=== PATIENT | female | born 1965 | race American Indian/Alaskan Native ===

== ENCOUNTER 2020-07-01 15:26 | Outpatient (CLI) | payer BC | END 2020-07-01 15:27 | disposition home or self-care (01) | LOC: LABHHL 15:26 | PROVIDERS: ATTEND Surgery | DX: C50.912 Malignant neoplasm of unspecified site of left female breast (principal) | CPT/HCPCS: 88342 ==

== ENCOUNTER 2020-07-02 13:04 | Outpatient (CLI) | payer BC ==
--- NOTE | 2020-07-02 15:50 | Magnetic Resonance Report ---
BILATERAL BREAST MRI WITH AND WITHOUT CONTRAST CLINICAL INFORMATION/INDICATION: Patient presents for evaluation of extent of disease of recent biops y proven left breast DCIS. TECHNICAL: Coronal STIR, axial T1 and T2-weighted fat sat images were obtained precontrast. Gadoliniu m-based contrast was injected intravenously and serial axial T1 weighted images with fat saturation w ere obtained. 3-D MIP projections, kinetic analysis and subtraction imaging was utilized to evaluate. A dedicated 8-channel breast coil was used for image acquisition. COMPARISON: Left mammogram 06/11/2020 FINDINGS: Right breast: There is heterogeneously dense fibroglandular tissue. There is mild background parenchy mal enhancement. No suspicious areas of enhancement or architectural distortion identified in the rig ht breast. There is no right axillary or internal mammary adenopathy. Left breast: There is heterogeneously dense fibroglandular tissue. There is mild background parenchym al enhancement. Corresponding with the site of biopsy-proven DCIS in the posterior upper outer quadrant of the left b reast, there is nonmass enhancement measuring up to approximately 1.7 cm AP by 0.8 cm TR. The area of nonmass enhancement is located approximately 8.5 cm from the nipple, 1.2 cm from the lateral skin glass rface, and 9 mm from the chest wall. There is a 5 mm satellite nodular area of enhancement located 1. 3 cm anterior to this area of nonmass enhancement (series 6, image 296). No additional suspicious are as of enhancement identified in the left breast. There is no left axillary or internal mammary adenop athy. IMPRESSION: 1. Nonmass enhancement is seen at the area of biopsy-proven DCIS in the posterior upper outer quadran t of the left breast. A small satellite nodular area of enhancement is seen slightly anterior to this as detailed above. 2. No suspicious MRI abnormality identified in the right breast. Follow up recommendation: No recall. BI-RADS Category 6: Known Biopsy-Proven Malignancy. Signer Name: Vanda Priest MD Signed: 07/02/2020 3:45 PM Workstation Name: [id number]
== END 2020-07-02 13:05 | disposition home or self-care (01) ==
LOC: SPVIMAG 13:04
PROVIDERS: ATTEND Surgery
DX: C50.412 Malignant neoplasm of upper-outer quadrant of left female breast (principal); N63.21 Unspecified lump in the left breast, upper outer quadrant
CPT/HCPCS: A9577; C8908; 77049